=== PATIENT | female | born 2000 | race African-American/Black ===

== ENCOUNTER 2020-12-11 13:09 | Emergency (ER) | payer MEDICAID ==
[~2020-12-11] VITALS: Ht 162.6 cm; Wt 56.8 kg
[~2020-12-11 13:09] MED LIST: CARAFATE 1GM1 G PO; CLARITIN LIQUI-10 MG PO; DEPO-PROVER150 MG/M1 IM; DOXYCYCLINE 50M50 MG PO; LAMICTAL 25MG T25 MG PO; LO LOESTRIN FE1 TAB PO; MINIPRESS2 MG; PRIL40 PO; PRISTIQ 50 MG T50 MG PO; PROAIR HFA0.09 MG/AC IH; SEROQUEL400 MG PO; SEROQUEL50 MG PO; SINGULAIR 110 MG/TAB PO; ZANTAC 150150 MG
[2020-12-11 13:20] VITALS: TEMP 98
[2020-12-11 13:59] LABS: BASO % 0.2 % (0.0-2.0); EOS % 0.1 % (0-4.0); GRAN # 11.1 (1.4-6.5); GRAN % 88.9 % (42.2-75.2); HEMATOCRIT 37.3 % (37.0-47.0); HEMOGLOBIN 12.3 g/dl (12.5-16.0); LYMPH # 1.2 (1.2-3.4); LYMPH % 9.4 % (20.0-51.0); MEAN CELL VOLUME 79 fl (80.0-100.0); MEAN CORPUSCULAR HEMOGLOBIN 26 pg (27.0-31.0); MEAN CORPUSCULAR HGB CONC 33 g/dl (33.0-37.0); MEAN PLATELET VOLUME 9.8 fl (7.4-10.4); MONO # 0.1 (0.1-0.6); MONO % 1.1 % (1.7-9.3); PLATELET COUNT 404 K/mm3 (130-400); RED BLOOD COUNT 4.75 M/mm3 (4.10-5.30); REDCELL DISTRIBUTION WIDTH-CV 14.4 % (11.5-14.5)
[2020-12-11 14:11] LABS: ALANINE AMINOTRANSFERASE 12 U/L (4-34); ALBUMIN 5.2 gm/dL (3.5-5.0); ALKALINE PHOSPHATASE 101 U/L (50-136); ANION GAP 13 mmol/L (7-16); AST,SGOT 21 U/L (15-37); BILIRUBIN,TOTAL 0.4 mg/dL (0.0-1.0); BLOOD UREA NITROGEN 14 mg/dL (7-17); CALCIUM 10.1 mg/dL (8.4-10.2); CARBON DIOXIDE 20 mmol/L (22-30); CHLORIDE 107 mmol/L (98-107); CREATININE, serum 0.61 (0.52-1.25); GLUCOSE 133 mg/dL (74-106); LIPASE 69 U/L (23-300); POTASSIUM 3.8 mmol/L (3.4-5.0); SODIUM 139 mmol/L (137-145); TOTAL PROTEIN 9.1 gm/dL (6.4-8.2)
[2020-12-11 14:18] LABS: C-REACTIVE PROTEIN < 0.5 mg/dL (0.0-0.9)
[2020-12-11 15:21] LABS: COLLECTION METHOD CLEAN CATCH
[2020-12-11 15:30] LABS: MUCOUS Present /lpf; PH 8 (5-8); SQUAMOUS EPITHELIAL 0-2 /hpf; URINE APPEARANCE Clear; URINE BACTERIA None Seen /hpf; URINE BILIRUBIN Negative (NEGATIVE); URINE BLOOD 1+ (NEGATIVE); URINE COLOR Yellow; URINE GLUCOSE Negative (NEGATIVE); URINE KETONE 2+ (NEGATIVE); URINE LEUKOCYTE ESTERASE Negative (NEGATIVE); URINE NITRATE Negative (NEGATIVE); URINE PROTEIN(semi-quant) 1+ (NEGATIVE); URINE RBC 0-2 /hpf; URINE UROBILINOGEN Negative (NEGATIVE)
[2020-12-11 17:01] LABS: TRICYCLIC ANTIDEPRESS URINE NEGATIVE
[2020-12-11] MEDS ORDERED: ZOFRAN ODT4 MG PO (17:42)
[2020-12-11 18:00] VITALS: BP 119/77; PULSE 94
[2020-12-12] MEDS ORDERED: PHENERGAN 25 TA25 MG PO (22:49)
== END 2020-12-11 18:00 | disposition home or self-care (01) ==
LOC: COL.ER 13:09
PROVIDERS: Nurse Practitioner
DX: R10.9 Unspecified abdominal pain (principal); R11.2 Nausea with vomiting, unspecified; R19.7 Diarrhea, unspecified
CPT/HCPCS: J1200; J2405; J3010; J7030; Q9967

== ENCOUNTER 2020-12-12 18:53 | Emergency (ER) | payer MEDICAID ==
[~2020-12-12] VITALS: Ht 162.6 cm; Wt 56.8 kg
[~2020-12-12 18:53] MED LIST changes: +ZOFRAN ODT4 MG PO
[2020-12-12 19:48] LABS: BASO % 0.4 % (0.0-2.0); EOS % 0.1 % (0-4.0); GRAN % 75.7 % (42.2-75.2); HEMATOCRIT 38.3 % (37.0-47.0); HEMOGLOBIN 12.8 g/dl (12.5-16.0); LYMPH # 1.9 (1.2-3.4); LYMPH % 17.9 % (20.0-51.0); MEAN CELL VOLUME 78 fl (80.0-100.0); MEAN CORPUSCULAR HEMOGLOBIN 26 pg (27.0-31.0); MEAN CORPUSCULAR HGB CONC 33 g/dl (33.0-37.0); MEAN PLATELET VOLUME 9.8 fl (7.4-10.4); MONO # 0.6 (0.1-0.6); MONO % 5.2 % (1.7-9.3); RED BLOOD COUNT 4.92 M/mm3 (4.10-5.30); REDCELL DISTRIBUTION WIDTH-CV 14.6 % (11.5-14.5)
[2020-12-12 20:06] LABS: ALANINE AMINOTRANSFERASE 15 U/L (4-34); ALBUMIN 5.4 gm/dL (3.5-5.0); ALKALINE PHOSPHATASE 105 U/L (50-136); ANION GAP 15 mmol/L (7-16); AST,SGOT 27 U/L (15-37); BILIRUBIN,TOTAL 0.6 mg/dL (0.0-1.0); BLOOD UREA NITROGEN 11 mg/dL (7-17); CALCIUM 10.4 mg/dL (8.4-10.2); CARBON DIOXIDE 23 mmol/L (22-30); CHLORIDE 100 mmol/L (98-107); CREATININE, serum 0.77 (0.52-1.25); GLUCOSE 109 mg/dL (74-106); LIPASE 79 U/L (23-300); POTASSIUM 3.3 mmol/L (3.4-5.0); SODIUM 138 mmol/L (137-145); TOTAL PROTEIN 9.5 gm/dL (6.4-8.2)
[2020-12-12 20:07] LABS: C-REACTIVE PROTEIN < 0.5 mg/dL (0.0-0.9)
[2020-12-12 20:19] LABS: PLATELET COUNT 506 K/mm3 (130-400)
[2020-12-12 21:10] LABS: COLLECTION METHOD CLEAN CATCH
[2020-12-12 21:25] LABS: MUCOUS Present /lpf; PH 7 (5-8); SQUAMOUS EPITHELIAL 0-2 /hpf; URINE APPEARANCE Clear; URINE BACTERIA None Seen /hpf; URINE BILIRUBIN Negative (NEGATIVE); URINE BLOOD Negative (NEGATIVE); URINE COLOR Yellow; URINE GLUCOSE Negative (NEGATIVE); URINE KETONE 2+ (NEGATIVE); URINE LEUKOCYTE ESTERASE Negative (NEGATIVE); URINE NITRATE Negative (NEGATIVE); URINE PROTEIN(semi-quant) 2+ (NEGATIVE); URINE RBC 0-2 /hpf
[2020-12-12] MEDS ORDERED: PHENERGAN 25 TA25 MG PO (22:49)
[2020-12-12 23:15] VITALS: BP 128/71; PULSE 68; TEMP 98.5
[2020-12-13] MEDS ORDERED: K-TAB20 PO (13:35)
[2020-12-13] MEDS ORDERED: HALDOL 1MG T1 MG/TAB PO (13:35)
[2020-12-13] MEDS ORDERED: ATIVAN 1MG T1 MG/TAB PO (13:35)
== END 2020-12-12 23:16 | disposition home or self-care (01) ==
LOC: COL.ER 18:53
PROVIDERS: Nurse Practitioner Primary Care
DX: K52.9 Noninfective gastroenteritis and colitis, unspecified (principal); F17.290 Nicotine dependence, other tobacco product, uncomplicated
CPT/HCPCS: J1200; J2405; J2550; J7030

== ENCOUNTER 2020-12-13 11:59 | Emergency (ER) | payer MEDICAID ==
[~2020-12-13] VITALS: Ht 162.6 cm; Wt 57.7 kg
[~2020-12-13 11:59] MED LIST changes: +PHENERGAN 25 TA25 MG PO
[2020-12-13 12:00] VITALS: TEMP 97.2
[2020-12-13 12:43] LABS: BASO % 0.3 % (0.0-2.0); EOS % 0.2 % (0-4.0); GRAN # 7.4 (1.4-6.5); GRAN % 74.5 % (42.2-75.2); HEMATOCRIT 31.7 % (37.0-47.0); HEMOGLOBIN 10.5 g/dl (12.5-16.0); LYMPH # 1.8 (1.2-3.4); LYMPH % 18.1 % (20.0-51.0); MEAN CELL VOLUME 79 fl (80.0-100.0); MEAN CORPUSCULAR HEMOGLOBIN 26 pg (27.0-31.0); MEAN CORPUSCULAR HGB CONC 33 g/dl (33.0-37.0); MEAN PLATELET VOLUME 9.7 fl (7.4-10.4); MONO # 0.6 (0.1-0.6); MONO % 6.5 % (1.7-9.3); PLATELET COUNT 311 K/mm3 (130-400); RED BLOOD COUNT 4.01 M/mm3 (4.10-5.30); REDCELL DISTRIBUTION WIDTH-CV 14.3 % (11.5-14.5)
[2020-12-13 12:52] LABS: ALBUMIN 4.1 gm/dL (3.5-5.0); BILIRUBIN,TOTAL 0.4 mg/dL (0.0-1.0); CALCIUM 8.1 mg/dL (8.4-10.2); CREATININE, serum 0.63 (0.52-1.25)
[2020-12-13 12:55] LABS: POTASSIUM 2.8 mmol/L (3.4-5.0)
[2020-12-13] MEDS ORDERED: HALDOL 1MG T1 MG/TAB PO (13:35)
[2020-12-13] MEDS ORDERED: ATIVAN 1MG T1 MG/TAB PO (13:35)
[2020-12-13] MEDS ORDERED: K-TAB20 PO (13:35)
[2020-12-13 14:08] VITALS: BP 110/64; PULSE 77
== END 2020-12-13 14:11 | disposition home or self-care (01) ==
LOC: COL.ER 11:59
PROVIDERS: Emergency Medicine
DX: E87.6 Hypokalemia (principal); R11.2 Nausea with vomiting, unspecified; Z32.02 Encounter for pregnancy test, result negative; Z88.0 Allergy status to penicillin; Z88.1 Allergy status to other antibiotic agents
CPT/HCPCS: J1630; J2060; J3480; J7030

== ENCOUNTER 2020-12-14 09:21 | Emergency (ER) | payer MEDICAID ==
[~2020-12-14] VITALS: Ht 162.6 cm; Wt 57.7 kg
[~2020-12-14 09:21] MED LIST changes: +ATIVAN 1MG T1 MG/TAB PO; +HALDOL 1MG T1 MG/TAB PO; +K-TAB20 PO
[2020-12-14 09:28] VITALS: TEMP 98
[2020-12-14 10:31] LABS: BASO % 0.4 % (0.0-2.0); EOS % 0.4 % (0-4.0); GRAN # 8.5 (1.4-6.5); GRAN % 77.1 % (42.2-75.2); HEMOGLOBIN 10.9 g/dl (12.5-16.0); LYMPH # 1.9 (1.2-3.4); LYMPH % 16.7 % (20.0-51.0); MEAN CELL VOLUME 79 fl (80.0-100.0); MEAN CORPUSCULAR HEMOGLOBIN 26 pg (27.0-31.0); MEAN CORPUSCULAR HGB CONC 33 g/dl (33.0-37.0); MONO # 0.6 (0.1-0.6); PLATELET COUNT 353 K/mm3 (130-400); RED BLOOD COUNT 4.23 M/mm3 (4.10-5.30); REDCELL DISTRIBUTION WIDTH-CV 14.3 % (11.5-14.5)
[2020-12-14 10:33] LABS: HEMATOCRIT 33.4 % (37.0-47.0)
[2020-12-14 10:42] LABS: ALBUMIN 4.3 gm/dL (3.5-5.0); BILIRUBIN,TOTAL 0.4 mg/dL (0.0-1.0); CREATININE, serum 0.65 (0.52-1.25); TOTAL PROTEIN 7.5 gm/dL (6.4-8.2)
[2020-12-14 12:12] VITALS: BP 117/81; PULSE 68
== END 2020-12-14 12:19 | disposition home or self-care (01) ==
LOC: COL.ER 09:21
PROVIDERS: Physician Assistant
DX: K52.9 Noninfective gastroenteritis and colitis, unspecified (principal); E87.6 Hypokalemia; D72.829 Elevated white blood cell count, unspecified
CPT/HCPCS: J2550; J7030

== ENCOUNTER 2020-12-16 19:00 | Emergency (ER) | payer MEDICAID ==
[~2020-12-16] VITALS: Ht 162.6 cm; Wt 57.7 kg
[2020-12-16 19:48] LABS: COLLECTION METHOD CLEAN CATCH
[2020-12-16 19:53] LABS: HEMOGLOBIN 11.9 g/dl (12.5-16.0); MEAN CELL VOLUME 76 fl (80.0-100.0); MEAN CORPUSCULAR HEMOGLOBIN 26 pg (27.0-31.0); MEAN CORPUSCULAR HGB CONC 34 g/dl (33.0-37.0); MEAN PLATELET VOLUME 9.6 fl (7.4-10.4); PLATELET COUNT 399 K/mm3 (130-400); RED BLOOD COUNT 4.55 M/mm3 (4.10-5.30)
[2020-12-16 19:54] LABS: HEMATOCRIT 34.6 % (37.0-47.0)
[2020-12-16 20:01] LABS: MUCOUS Present /lpf; PH 7 (5-8); SQUAMOUS EPITHELIAL 0-2 /hpf; URINE APPEARANCE Cloudy; URINE BACTERIA Rare /hpf; URINE BILIRUBIN Negative (NEGATIVE); URINE BLOOD 1+ (NEGATIVE); URINE COLOR Yellow; URINE GLUCOSE Negative (NEGATIVE); URINE KETONE 2+ (NEGATIVE); URINE LEUKOCYTE ESTERASE Negative (NEGATIVE); URINE NITRATE Negative (NEGATIVE); URINE PROTEIN(semi-quant) 1+ (NEGATIVE); URINE RBC 0-2 /hpf
[2020-12-16 20:06] LABS: ALBUMIN 4.7 gm/dL (3.5-5.0); BILIRUBIN,TOTAL 0.5 mg/dL (0.0-1.0); CALCIUM 9.5 mg/dL (8.4-10.2); CREATININE, serum 0.62 (0.52-1.25)
[2020-12-16 20:13] LABS: POTASSIUM 2.9 mmol/L (3.4-5.0)
[2020-12-16] MEDS ORDERED: PHENERGAN12.5 MG/SU RC (21:15)
[2020-12-16 21:22] LABS: TRICYCLIC ANTIDEPRESS URINE NEGATIVE
[2020-12-16] MEDS ORDERED: KLOR-CON20 MEQ PO (21:31)
[2020-12-16 21:45] VITALS: BP 134/92; PULSE 95; TEMP 98.5
== END 2020-12-16 21:45 | disposition home or self-care (01) ==
LOC: COL.ER 19:00
PROVIDERS: Physician Assistant
DX: K52.9 Noninfective gastroenteritis and colitis, unspecified (principal); E87.6 Hypokalemia
CPT/HCPCS: J2550; J7030

== ENCOUNTER 2020-12-17 06:19 | Emergency (ER) | payer MEDICAID ==
[~2020-12-17] VITALS: Ht 162.6 cm; Wt 57.7 kg
[~2020-12-17 06:19] MED LIST changes: +KLOR-CON20 MEQ PO; +PHENERGAN12.5 MG/SU RC
[2020-12-17 06:30] VITALS: TEMP 98.7
[2020-12-17 07:17] LABS: BASO % 0.6 % (0.0-2.0); EOS # 0.1 (0.0-0.7); EOS % 0.8 % (0-4.0); GRAN # 4.6 (1.4-6.5); GRAN % 62.8 % (42.2-75.2); HEMOGLOBIN 11.9 g/dl (12.5-16.0); MEAN CELL VOLUME 78 fl (80.0-100.0); MEAN CORPUSCULAR HEMOGLOBIN 26 pg (27.0-31.0); MEAN CORPUSCULAR HGB CONC 34 g/dl (33.0-37.0); MEAN PLATELET VOLUME 9.4 fl (7.4-10.4); MONO # 0.5 (0.1-0.6); MONO % 7.4 % (1.7-9.3); PLATELET COUNT 378 K/mm3 (130-400); RED BLOOD COUNT 4.56 M/mm3 (4.10-5.30)
[2020-12-17 07:18] LABS: HEMATOCRIT 35.5 % (37.0-47.0)
[2020-12-17 07:26] LABS: ALBUMIN 4.6 gm/dL (3.5-5.0); BILIRUBIN,TOTAL 0.6 mg/dL (0.0-1.0); CALCIUM 9.4 mg/dL (8.4-10.2); CREATININE, serum 0.65 (0.52-1.25); POTASSIUM 3.2 mmol/L (3.4-5.0); TOTAL PROTEIN 7.8 gm/dL (6.4-8.2)
[2020-12-17 07:55] VITALS: BP 133/69; PULSE 87
== END 2020-12-17 07:55 | disposition home or self-care (01) ==
LOC: COL.ER 06:19
PROVIDERS: Personal Emergency Response Attendant
DX: K52.9 Noninfective gastroenteritis and colitis, unspecified (principal); E87.6 Hypokalemia
CPT/HCPCS: J1630; J7030

== ENCOUNTER 2020-12-21 10:52 | Emergency (ER) | payer MEDICAID ==
[~2020-12-21] VITALS: Ht 162.6 cm; Wt 57.7 kg
[2020-12-21 10:57] VITALS: TEMP 98.7
[2020-12-21 12:56] VITALS: BP 123/69; PULSE 86
[2020-12-21] MEDS ORDERED: ZOFRAN ODT4 MG PO (13:01)
== END 2020-12-21 13:07 | disposition home or self-care (01) ==
LOC: COL.ER 10:52
DX: R11.2 Nausea with vomiting, unspecified (principal); F17.290 Nicotine dependence, other tobacco product, uncomplicated
CPT/HCPCS: J1630; J7120

== ENCOUNTER 2020-12-26 11:00 | Emergency (ER) | payer MEDICAID ==
[~2020-12-26] VITALS: Ht 162.6 cm; Wt 57.7 kg
[2020-12-26 11:11] VITALS: TEMP 97.5
[2020-12-26 12:38] VITALS: BP 139/94; PULSE 98
== END 2020-12-26 12:38 | disposition home or self-care (01) ==
LOC: COL.ER 11:00
DX: F12.90 Cannabis use, unspecified, uncomplicated (principal); R11.2 Nausea with vomiting, unspecified
CPT/HCPCS: J1630

== ENCOUNTER 2020-12-28 11:10 | Emergency (ER) | payer MEDICAID ==
[~2020-12-28] VITALS: Ht 162.6 cm; Wt 57.7 kg
[2020-12-28 11:26] LABS: BASO % 0.3 % (0.0-2.0); EOS # 0.1 (0.0-0.7); EOS % 1.1 % (0-4.0); GRAN # 7.7 (1.4-6.5); GRAN % 71.3 % (42.2-75.2); HEMOGLOBIN 11.9 g/dl (12.5-16.0); LYMPH # 2.2 (1.2-3.4); LYMPH % 20.5 % (20.0-51.0); MEAN CELL VOLUME 78 fl (80.0-100.0); MEAN CORPUSCULAR HEMOGLOBIN 26 pg (27.0-31.0); MEAN CORPUSCULAR HGB CONC 33 g/dl (33.0-37.0); MEAN PLATELET VOLUME 9.5 fl (7.4-10.4); MONO # 0.7 (0.1-0.6); MONO % 6.4 % (1.7-9.3); PLATELET COUNT 415 K/mm3 (130-400); RED BLOOD COUNT 4.65 M/mm3 (4.10-5.30); REDCELL DISTRIBUTION WIDTH-CV 14.8 % (11.5-14.5)
[2020-12-28 11:36] LABS: HEMATOCRIT 36.4 % (37.0-47.0)
[2020-12-28 11:48] LABS: ALANINE AMINOTRANSFERASE 11 U/L (4-34); ALBUMIN 4.7 gm/dL (3.5-5.0); ALKALINE PHOSPHATASE 80 U/L (50-136); ANION GAP 8 mmol/L (7-16); AST,SGOT 19 U/L (15-37); BILIRUBIN,TOTAL 0.3 mg/dL (0.0-1.0); BLOOD UREA NITROGEN 10 mg/dL (7-17); CALCIUM 9.8 mg/dL (8.4-10.2); CARBON DIOXIDE 20 mmol/L (22-30); CHLORIDE 107 mmol/L (98-107); CREATININE, serum 0.59 (0.52-1.25); GLUCOSE 112 mg/dL (74-106); LIPASE 101 U/L (23-300); POTASSIUM 3.9 mmol/L (3.4-5.0); SODIUM 136 mmol/L (137-145); TOTAL PROTEIN 8.1 gm/dL (6.4-8.2)
[2020-12-28 11:50] LABS: C-REACTIVE PROTEIN < 0.5 mg/dL (0.0-0.9)
[2020-12-28 12:27] VITALS: TEMP 97.6
[2020-12-28] MEDS ORDERED: ZOFRAN ODT4 MG PO (14:47)
[2020-12-28 15:15] VITALS: BP 138/88; PULSE 69
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
== END 2020-12-28 15:20 | disposition home or self-care (01) ==
LOC: COL.ER 11:10
PROVIDERS: Nurse Practitioner Primary Care
DX: R11.2 Nausea with vomiting, unspecified (principal); F12.90 Cannabis use, unspecified, uncomplicated; J45.909 Unspecified asthma, uncomplicated
CPT/HCPCS: J1630; J1885; J2405; J2550; J7030

== ENCOUNTER 2021-03-17 10:25 | Emergency (ER) | payer MEDICAID ==
[~2021-03-17] VITALS: Ht 162.6 cm; Wt 53.2 kg
[2021-03-17 10:34] VITALS: TEMP 96.8
[2021-03-17] MEDS ORDERED: ZOFRAN ODT4 MG PO (11:24)
[2021-03-17 11:32] VITALS: BP 133/80; PULSE 94
== END 2021-03-17 11:32 | disposition home or self-care (01) ==
LOC: COL.ER 10:25
DX: R11.2 Nausea with vomiting, unspecified (principal)
CPT/HCPCS: J1630; J7030

== ENCOUNTER 2021-03-18 20:33 | Emergency (ER) | payer MEDICAID ==
[~2021-03-18] VITALS: Ht 162.6 cm; Wt 53.2 kg
[2021-03-18 20:43] VITALS: TEMP 98.4
[2021-03-18 21:12] LABS: BASO % 0.3 % (0.0-2.0); GRAN # 8.8 (1.4-6.5); GRAN % 78.1 % (42.2-75.2); HEMOGLOBIN 11.8 g/dl (12.5-16.0); LYMPH # 1.8 (1.2-3.4); LYMPH % 15.6 % (20.0-51.0); MEAN CELL VOLUME 78 fl (80.0-100.0); MEAN CORPUSCULAR HEMOGLOBIN 26 pg (27.0-31.0); MEAN CORPUSCULAR HGB CONC 34 g/dl (33.0-37.0); MEAN PLATELET VOLUME 9.7 fl (7.4-10.4); MONO # 0.6 (0.1-0.6); MONO % 5.6 % (1.7-9.3); PLATELET COUNT 402 K/mm3 (130-400); RED BLOOD COUNT 4.51 M/mm3 (4.10-5.30); REDCELL DISTRIBUTION WIDTH-CV 14.7 % (11.5-14.5)
[2021-03-18 21:13] LABS: HEMATOCRIT 35.1 % (37.0-47.0)
[2021-03-18 21:32] LABS: ALBUMIN 4.8 gm/dL (3.5-5.0); ALKALINE PHOSPHATASE 82 U/L (0-750); ANION GAP 16 mmol/L; AST,SGOT 13 U/L (5-34); BILIRUBIN,TOTAL 0.5 mg/dL (0.2-1.2); BLOOD UREA NITROGEN 10 mg/dL (7-19); CALCIUM 9.9 mg/dL (8.4-10.2); CARBON DIOXIDE 21 mEq/L (22-29); CHLORIDE 103 mmol/L (98-107); CREATININE, serum 0.81 mg/dL (0.57-1.11); GLUCOSE 112 mg/dL (70-99); LIPASE 13 U/L (8-78); SODIUM 140 mmol/L (136-145); TOTAL PROTEIN 8.2 gm/dL (6.2-8.1)
[2021-03-18 21:33] LABS: ALANINE AMINOTRANSFERASE < 6 U/L (0-55)
[2021-03-18 22:03] VITALS: BP 104/58; PULSE 100
== END 2021-03-18 22:04 | disposition home or self-care (01) ==
LOC: COL.ER 20:33
PROVIDERS: Emergency Medicine
DX: R11.2 Nausea with vomiting, unspecified (principal); R10.13 Epigastric pain; E87.6 Hypokalemia; Z32.02 Encounter for pregnancy test, result negative
CPT/HCPCS: J0780; J2405; J7030

== ENCOUNTER 2021-03-19 08:15 | Emergency (ER) | payer MEDICAID ==
[2021-03-19 08:18] VITALS: TEMP 98.1
[2021-03-19 08:32] LABS: BASO # 0.1 (0.0-0.2); BASO % 0.6 % (0.0-2.0); EOS % 0.1 % (0-4.0); GRAN # 5.8 (1.4-6.5); GRAN % 67.6 % (42.2-75.2); HEMATOCRIT 33.2 % (37.0-47.0); HEMOGLOBIN 11.2 g/dl (12.5-16.0); LYMPH # 2.1 (1.2-3.4); LYMPH % 24.1 % (20.0-51.0); MEAN CELL VOLUME 78 fl (80.0-100.0); MEAN CORPUSCULAR HEMOGLOBIN 26 pg (27.0-31.0); MEAN CORPUSCULAR HGB CONC 34 g/dl (33.0-37.0); MEAN PLATELET VOLUME 9.8 fl (7.4-10.4); MONO # 0.6 (0.1-0.6); PLATELET COUNT 344 K/mm3 (130-400); RED BLOOD COUNT 4.24 M/mm3 (4.10-5.30); REDCELL DISTRIBUTION WIDTH-CV 14.7 % (11.5-14.5)
[2021-03-19 08:33] LABS: COLLECTION METHOD CLEAN CATCH
[2021-03-19 08:50] LABS: MUCOUS Present /lpf; PH 6 (5-8); SQUAMOUS EPITHELIAL 20-50 /hpf; URINE APPEARANCE Cloudy; URINE BACTERIA Rare /hpf; URINE BILIRUBIN Negative (NEGATIVE); URINE BLOOD Negative (NEGATIVE); URINE COLOR Yellow; URINE GLUCOSE Negative (NEGATIVE); URINE KETONE 2+ (NEGATIVE); URINE LEUKOCYTE ESTERASE Negative (NEGATIVE); URINE NITRATE Negative (NEGATIVE); URINE PROTEIN(semi-quant) 1+ (NEGATIVE); URINE RBC 0-2 /hpf
[2021-03-19 08:51] LABS: TRICYCLIC ANTIDEPRESS URINE NEGATIVE
[2021-03-19 08:52] LABS: ALBUMIN 4.5 gm/dL (3.5-5.0); ALKALINE PHOSPHATASE 76 U/L (0-750); ANION GAP 11 mmol/L; AST,SGOT 10 U/L (5-34); BILIRUBIN,TOTAL 0.5 mg/dL (0.2-1.2); BLOOD UREA NITROGEN 9 mg/dL (7-19); CALCIUM 9.6 mg/dL (8.4-10.2); CARBON DIOXIDE 22 mEq/L (22-29); CHLORIDE 104 mmol/L (98-107); CREATININE, serum 0.74 mg/dL (0.57-1.11); GLUCOSE 99 mg/dL (70-99); LIPASE 12 U/L (8-78); SODIUM 137 mmol/L (136-145); TOTAL PROTEIN 7.7 gm/dL (6.2-8.1)
[2021-03-19 08:58] LABS: ALANINE AMINOTRANSFERASE < 6 U/L (0-55)
[2021-03-19 09:49] VITALS: BP 118/79; PULSE 92
[2021-03-20] MEDS ORDERED: PHENERGAN 25 TA25 MG PO (10:55)
== END 2021-03-19 09:51 | disposition home or self-care (01) ==
LOC: COL.ER 08:15
PROVIDERS: Family Medicine
DX: E87.6 Hypokalemia (principal)
CPT/HCPCS: J7120

== ENCOUNTER 2021-03-20 09:18 | Emergency (ER) | payer MEDICAID ==
[~2021-03-20] VITALS: Ht 162.6 cm; Wt 53.2 kg
[2021-03-20 09:29] VITALS: BP 127/71; TEMP 97.1
[2021-03-20] MEDS ORDERED: PHENERGAN 25 TA25 MG PO (10:55)
[2021-03-20 11:06] VITALS: PULSE 76
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
--- NOTE | 2021-03-22 13:55 | NUR ---
highway maintenance crew worker left message for patient to contact [facility] DCF worker and provide release of information so that Worker can collaborate and discuss care. Worker spoke with [facility] and advised of needs for mental health services and child support case officer , as worker and patient discussed during her emergency room stay. [facility] cannot discuss case with this worker without a release.
== END 2021-03-20 11:07 | disposition home or self-care (01) ==
LOC: COL.ER 09:18
DX: G89.29 Other chronic pain (principal); E86.0 Dehydration; R10.13 Epigastric pain; R11.2 Nausea with vomiting, unspecified
CPT/HCPCS: J2550

== ENCOUNTER 2021-03-21 05:14 | Emergency (ER) | payer MEDICAID ==
[~2021-03-21] VITALS: Ht 162.6 cm; Wt 53.2 kg
[2021-03-21 05:19] VITALS: BP 132/81; TEMP 98
[2021-03-21 05:42] LABS: BASO # 0.1 (0.0-0.2); BASO % 0.6 % (0.0-2.0); EOS % 0.3 % (0-4.0); GRAN # 5.4 (1.4-6.5); GRAN % 55.6 % (42.2-75.2); HEMATOCRIT 38.7 % (37.0-47.0); LYMPH # 3.4 (1.2-3.4); LYMPH % 34.9 % (20.0-51.0); MEAN CELL VOLUME 79 fl (80.0-100.0); MEAN CORPUSCULAR HEMOGLOBIN 27 pg (27.0-31.0); MEAN CORPUSCULAR HGB CONC 34 g/dl (33.0-37.0); MEAN PLATELET VOLUME 9.8 fl (7.4-10.4); MONO # 0.8 (0.1-0.6); MONO % 8.2 % (1.7-9.3); PLATELET COUNT 394 K/mm3 (130-400); RED BLOOD COUNT 4.91 M/mm3 (4.10-5.30); REDCELL DISTRIBUTION WIDTH-CV 14.3 % (11.5-14.5)
[2021-03-21 06:00] LABS: ALBUMIN 4.9 gm/dL (3.5-5.0); BILIRUBIN,TOTAL 0.8 mg/dL (0.2-1.2); CREATININE, serum 0.86 mg/dL (0.57-1.11); TOTAL PROTEIN 8.4 gm/dL (6.2-8.1)
[2021-03-21 08:16] VITALS: PULSE 85
== END 2021-03-21 08:16 | disposition home or self-care (01) ==
LOC: COL.ER 05:14
PROVIDERS: Emergency Medicine
DX: R10.13 Epigastric pain (principal); E86.0 Dehydration; R11.2 Nausea with vomiting, unspecified
CPT/HCPCS: J1630; J2405; J2550; J3480; J7030; Q9967

== ENCOUNTER 2021-03-23 10:59 | Outpatient (CLI) | payer MEDICAID ==
[~2021-03-23] VITALS: Ht 162.6 cm; Wt 50.0 kg
[2021-03-23 12:38] VITALS: BP 138/82; PULSE 85; TEMP 98.7
== END 2021-03-23 15:01 ==
LOC: EUO 10:59
DX: E86.0 Dehydration (principal)
CPT/HCPCS: J7120

== ENCOUNTER 2021-03-24 15:56 | Outpatient (CLI) | payer MEDICAID ==
[~2021-03-24] VITALS: Ht 162.6 cm; Wt 48.6 kg
[2021-03-24 16:16] VITALS: BP 129/72; PULSE 104; TEMP 99.2
--- NOTE | 2021-03-24 18:05 | NUR ---
PT reports nausea somewhat improved after zofran. I have dc'd her IV and site is dressed. I have discussed with pt that she can go to urgent care or ER between and saturday if she has intractable abd pain or vomiting. Pt does express reluctance to go to ER, however I advised her to seek medical care there if needed. Pt does have a f/u appt with her pcp on saturday. Pt is ambulatory to exit with steady gait.
== END 2021-03-24 19:50 | disposition home or self-care (01) ==
LOC: EUO 15:56
DX: E86.0 Dehydration (principal)
CPT/HCPCS: J2405; J7120

== ENCOUNTER 2021-03-25 14:00 | Emergency (ER) | payer MEDICAID ==
[~2021-03-25] VITALS: Ht 162.6 cm; Wt 48.6 kg
[2021-03-25 14:17] VITALS: BP 143/84; TEMP 99.2
[2021-03-25 15:05] LABS: COLLECTION METHOD CLEAN CATCH
[2021-03-25 15:09] LABS: BASO % 0.3 % (0.0-2.0); EOS % 0.4 % (0-4.0); HEMATOCRIT 34.8 % (37.0-47.0); HEMOGLOBIN 11.8 g/dl (12.5-16.0); LYMPH # 2.9 (1.2-3.4); LYMPH % 30.1 % (20.0-51.0); MEAN CELL VOLUME 79 fl (80.0-100.0); MEAN CORPUSCULAR HEMOGLOBIN 27 pg (27.0-31.0); MEAN CORPUSCULAR HGB CONC 34 g/dl (33.0-37.0); MEAN PLATELET VOLUME 9.9 fl (7.4-10.4); MONO # 0.8 (0.1-0.6); MONO % 7.9 % (1.7-9.3); PLATELET COUNT 357 K/mm3 (130-400); RED BLOOD COUNT 4.43 M/mm3 (4.10-5.30); REDCELL DISTRIBUTION WIDTH-CV 14.5 % (11.5-14.5)
[2021-03-25 15:20] LABS: PH 8 (5-8); URINE APPEARANCE Hazy; URINE BILIRUBIN Negative (NEGATIVE); URINE BLOOD 1+ (NEGATIVE); URINE COLOR Yellow; URINE GLUCOSE Negative (NEGATIVE); URINE KETONE 2+ (NEGATIVE); URINE NITRATE Negative (NEGATIVE); URINE PROTEIN(semi-quant) 2+ (NEGATIVE); URINE UROBILINOGEN >=4.0 mg/dL (NEGATIVE)
[2021-03-25 15:21] LABS: MUCOUS Present /lpf; SQUAMOUS EPITHELIAL 0-2 /hpf; URINE BACTERIA None Seen /hpf; URINE LEUKOCYTE ESTERASE Negative (NEGATIVE); URINE RBC 0-2 /hpf
[2021-03-25 15:29] LABS: ALBUMIN 4.5 gm/dL (3.5-5.0); ALKALINE PHOSPHATASE 66 U/L (0-750); ANION GAP 14 mmol/L (7-16); AST,SGOT 11 U/L (5-34); BILIRUBIN,TOTAL 0.4 mg/dL (0.2-1.2); BLOOD UREA NITROGEN 6 mg/dL (7-19); CALCIUM 9.6 mg/dL (8.4-10.2); CARBON DIOXIDE 23 mmol/L (22-29); CHLORIDE 102 mmol/L (98-107); CREATININE, serum 0.76 mg/dL (0.57-1.11); GLUCOSE 91 mg/dL (70-99); SODIUM 139 mmol/L (136-145); TOTAL PROTEIN 7.5 gm/dL (6.2-8.1)
[2021-03-25 15:38] LABS: ALANINE AMINOTRANSFERASE < 6 U/L (0-55)
[2021-03-25 16:00] VITALS: PULSE 90
== END 2021-03-25 16:00 | disposition home or self-care (01) ==
LOC: COL.ER 14:00
PROVIDERS: Physician Assistant
DX: G89.29 Other chronic pain (principal); R10.13 Epigastric pain; R11.2 Nausea with vomiting, unspecified; D64.9 Anemia, unspecified; E87.6 Hypokalemia; Z87.891 Personal history of nicotine dependence; Z87.19 Personal history of other diseases of the digestive system
CPT/HCPCS: J1790

== ENCOUNTER 2021-03-26 12:47 | Emergency (ER) | payer MEDICAID ==
[~2021-03-26] VITALS: Ht 162.6 cm; Wt 48.6 kg
[2021-03-26 13:05] VITALS: BP 146/112; TEMP 99.1
[2021-03-26 15:25] VITALS: PULSE 99
== END 2021-03-26 15:25 | disposition home or self-care (01) ==
LOC: COL.ER 12:47
DX: R11.2 Nausea with vomiting, unspecified (principal); F17.200 Nicotine dependence, unspecified, uncomplicated
CPT/HCPCS: J0780; J2550

== ENCOUNTER 2021-03-29 12:17 | Emergency (ER) | payer MEDICAID ==
[~2021-03-29] VITALS: Ht 162.6 cm; Wt 48.6 kg
[2021-03-29 12:32] VITALS: TEMP 98.6
[2021-03-29 13:58] LABS: BASO % 0.3 % (0.0-2.0); EOS % 0.3 % (0-4.0); GRAN # 7.3 K/mm3 (1.4-6.5); GRAN % 79.7 % (42.2-75.2); HEMOGLOBIN 11.5 g/dl (12.5-16.0); LYMPH # 1.4 K/mm3 (1.2-3.4); MEAN CELL VOLUME 79 fl (80.0-100.0); MEAN CORPUSCULAR HEMOGLOBIN 26 pg (27.0-31.0); MEAN CORPUSCULAR HGB CONC 33 g/dl (33.0-37.0); MEAN PLATELET VOLUME 9.7 fl (7.4-10.4); MONO # 0.4 K/mm3 (0.1-0.6); MONO % 4.4 % (1.7-9.3); PLATELET COUNT 346 K/mm3 (130-400); RED BLOOD COUNT 4.37 M/mm3 (4.10-5.30); REDCELL DISTRIBUTION WIDTH-CV 14.9 % (11.5-14.5)
[2021-03-29 14:00] LABS: HEMATOCRIT 34.6 % (37.0-47.0)
[2021-03-29 14:14] LABS: ALBUMIN 4.5 gm/dL (3.5-5.0); ALKALINE PHOSPHATASE 61 U/L (0-750); ANION GAP 8 mmol/L (7-16); AST,SGOT 11 U/L (5-34); BILIRUBIN,TOTAL 0.3 mg/dL (0.2-1.2); BLOOD UREA NITROGEN 8 mg/dL (7-19); CALCIUM 9.2 mg/dL (8.4-10.2); CARBON DIOXIDE 26 mmol/L (22-29); CHLORIDE 106 mmol/L (98-107); CREATININE, serum 0.68 mg/dL (0.57-1.11); GLUCOSE 106 mg/dL (70-99); POTASSIUM 3.1 mmol/L (3.5-4.5); SODIUM 140 mmol/L (136-145); TOTAL PROTEIN 7.4 gm/dL (6.2-8.1)
[2021-03-29 14:24] LABS: ALANINE AMINOTRANSFERASE < 6 U/L (0-55)
[2021-03-29 15:11] LABS: COLLECTION METHOD CLEAN CATCH
[2021-03-29 15:22] LABS: AMORPHOUS CRYSTAL Present /uL; MUCOUS Present /lpf; PH 9 (5-8); SQUAMOUS EPITHELIAL 0-2 /hpf; URINE APPEARANCE Cloudy; URINE BACTERIA Rare /hpf; URINE BILIRUBIN Negative (NEGATIVE); URINE BLOOD Negative (NEGATIVE); URINE COLOR Yellow; URINE GLUCOSE Negative (NEGATIVE); URINE KETONE Negative (NEGATIVE); URINE LEUKOCYTE ESTERASE Negative (NEGATIVE); URINE NITRATE Negative (NEGATIVE); URINE PROTEIN(semi-quant) Negative (NEGATIVE); URINE UROBILINOGEN Negative (NEGATIVE)
[2021-03-29 16:34] VITALS: BP 131/91; PULSE 88
== END 2021-03-29 16:37 | disposition home or self-care (01) ==
LOC: COL.ER 12:17
PROVIDERS: Nurse Practitioner Primary Care
DX: E87.5 Hyperkalemia (principal); R11.2 Nausea with vomiting, unspecified; K21.9 Gastro-esophageal reflux disease without esophagitis; Z79.899 Other long term (current) drug therapy
CPT/HCPCS: J2550; J7030

== ENCOUNTER 2021-04-25 11:52 | Emergency (ER) | payer MEDICAID ==
[~2021-04-25] VITALS: Ht 162.6 cm; Wt 53.2 kg
[2021-04-25 12:11] VITALS: BP 124/100; TEMP 97.3
[2021-04-25] MEDS ORDERED: REGLAN 5MG T5 MG/TAB PO (12:11)
[2021-04-25 12:49] LABS: BASO # 0.1 K/mm3 (0.0-0.2); BASO % 0.4 % (0.0-2.0); EOS % 0.3 % (0-4.0); GRAN # 13.2 K/mm3 (1.4-6.5); GRAN % 85.7 % (42.2-75.2); LYMPH # 1.6 K/mm3 (1.2-3.4); LYMPH % 10.1 % (20.0-51.0); MEAN CELL VOLUME 79 fl (80.0-100.0); MEAN CORPUSCULAR HEMOGLOBIN 26 pg (27.0-31.0); MEAN CORPUSCULAR HGB CONC 33 g/dl (33.0-37.0); MONO # 0.5 K/mm3 (0.1-0.6); PLATELET COUNT 430 K/mm3 (130-400); RED BLOOD COUNT 4.21 M/mm3 (4.10-5.30); REDCELL DISTRIBUTION WIDTH-CV 14.6 % (11.5-14.5)
[2021-04-25 12:50] LABS: HEMATOCRIT 33.4 % (37.0-47.0)
[2021-04-25 13:06] LABS: ALBUMIN 4.6 gm/dL (3.5-5.0); BILIRUBIN,TOTAL 0.3 mg/dL (0.2-1.2); C-REACTIVE PROTEIN 0.03 mg/dL (0.00-0.50); CALCIUM 9.9 mg/dL (8.4-10.2); CREATININE, serum 0.7 mg/dL (0.57-1.11); POTASSIUM 3.7 mmol/L (3.5-4.5); TOTAL PROTEIN 7.5 gm/dL (6.2-8.1)
[2021-04-25 15:05] VITALS: PULSE 91
== END 2021-04-25 15:05 | disposition home or self-care (01) ==
LOC: COL.ER 11:52
PROVIDERS: Nurse Practitioner
DX: R11.2 Nausea with vomiting, unspecified (principal); D72.829 Elevated white blood cell count, unspecified
CPT/HCPCS: J2405; J2550; J7030

== ENCOUNTER 2021-05-26 09:03 | Emergency (ER) | payer MEDICAID ==
[~2021-05-26] VITALS: Ht 162.6 cm; Wt 53.2 kg
[~2021-05-26 09:03] MED LIST changes: +REGLAN 5MG T5 MG/TAB PO
[2021-05-26 09:05] VITALS: TEMP 97.9
[2021-05-26 09:54] LABS: BASO % 0.2 % (0.0-2.0); EOS % 0.2 % (0-4.0); GRAN % 81.6 % (42.2-75.2); HEMOGLOBIN 11.9 g/dl (12.5-16.0); LYMPH # 1.8 K/mm3 (1.2-3.4); LYMPH % 14.7 % (20.0-51.0); MEAN CELL VOLUME 79 fl (80.0-100.0); MEAN CORPUSCULAR HEMOGLOBIN 26 pg (27.0-31.0); MEAN CORPUSCULAR HGB CONC 33 g/dl (33.0-37.0); MEAN PLATELET VOLUME 9.7 fl (7.4-10.4); MONO # 0.4 K/mm3 (0.1-0.6); MONO % 2.9 % (1.7-9.3); PLATELET COUNT 369 K/mm3 (130-400); RED BLOOD COUNT 4.58 M/mm3 (4.10-5.30); REDCELL DISTRIBUTION WIDTH-CV 14.8 % (11.5-14.5)
[2021-05-26 10:10] LABS: ALBUMIN 5.1 gm/dL (3.5-5.0); BILIRUBIN,TOTAL 0.7 mg/dL (0.2-1.2); CALCIUM 9.8 mg/dL (8.4-10.2); CREATININE, serum 0.82 mg/dL (0.57-1.11); POTASSIUM 3.1 mmol/L (3.5-4.5); TOTAL PROTEIN 8.4 gm/dL (6.2-8.1)
[2021-05-26 10:18] VITALS: BP 123/84; PULSE 96
[2021-05-27] MEDS ORDERED: PHENERGAN 25 TA25 MG PO (06:37)
== END 2021-05-26 10:23 | disposition home or self-care (01) ==
LOC: COL.ER 09:03
PROVIDERS: Emergency Medicine
DX: R11.2 Nausea with vomiting, unspecified (principal)
CPT/HCPCS: J1790; J7030

== ENCOUNTER 2021-05-27 05:34 | Emergency (ER) | payer MEDICAID ==
[2021-05-27 05:49] VITALS: TEMP 98
[2021-05-27] MEDS ORDERED: PHENERGAN 25 TA25 MG PO (06:37)
[2021-05-27 06:42] VITALS: BP 130/86; PULSE 89
[2021-05-28] MEDS ORDERED: KLOR-CON SPRIN10 MEQ PO (09:35)
== END 2021-05-27 06:43 | disposition home or self-care (01) ==
LOC: COL.ER 05:34
DX: R11.2 Nausea with vomiting, unspecified (principal)
CPT/HCPCS: J2550

== ENCOUNTER 2021-05-28 08:24 | Emergency (ER) | payer MEDICAID ==
[~2021-05-28] VITALS: Ht 162.6 cm; Wt 53.2 kg
[2021-05-28 08:32] VITALS: TEMP 98.3
[2021-05-28 08:51] LABS: BASO # 0.1 K/mm3 (0.0-0.2); BASO % 0.4 % (0.0-2.0); GRAN # 7.8 K/mm3 (1.4-6.5); GRAN % 66.1 % (42.2-75.2); HEMATOCRIT 37.2 % (37.0-47.0); HEMOGLOBIN 12.6 g/dl (12.5-16.0); LYMPH # 3.2 K/mm3 (1.2-3.4); LYMPH % 26.6 % (20.0-51.0); MEAN CELL VOLUME 78 fl (80.0-100.0); MEAN CORPUSCULAR HEMOGLOBIN 26 pg (27.0-31.0); MEAN CORPUSCULAR HGB CONC 34 g/dl (33.0-37.0); MEAN PLATELET VOLUME 9.8 fl (7.4-10.4); MONO # 0.8 K/mm3 (0.1-0.6); MONO % 6.6 % (1.7-9.3); PLATELET COUNT 465 K/mm3 (130-400); RED BLOOD COUNT 4.78 M/mm3 (4.10-5.30); REDCELL DISTRIBUTION WIDTH-CV 14.6 % (11.5-14.5)
[2021-05-28 09:07] LABS: ALBUMIN 5.2 gm/dL (3.5-5.0); BILIRUBIN,TOTAL 0.7 mg/dL (0.2-1.2); C-REACTIVE PROTEIN 0.06 mg/dL (0.00-0.50); CREATININE, serum 0.82 mg/dL (0.57-1.11); POTASSIUM 3.3 mmol/L (3.5-4.5); TOTAL PROTEIN 8.8 gm/dL (6.2-8.1)
[2021-05-28] MEDS ORDERED: KLOR-CON SPRIN10 MEQ PO (09:35)
[2021-05-28 10:15] VITALS: BP 110/64; PULSE 86
== END 2021-05-28 10:15 | disposition home or self-care (01) ==
LOC: COL.ER 08:24
PROVIDERS: Family Medicine
DX: R11.2 Nausea with vomiting, unspecified (principal); K21.9 Gastro-esophageal reflux disease without esophagitis; Z79.899 Other long term (current) drug therapy
CPT/HCPCS: J1200; J1790; J7120

== ENCOUNTER 2021-05-29 12:01 | Outpatient (CLI) | payer MEDICAID ==
[~2021-05-29] VITALS: Ht 162.6 cm; Wt 50.3 kg
[~2021-05-29 12:01] MED LIST changes: +KLOR-CON SPRIN10 MEQ PO
[2021-05-29 12:44] VITALS: BP 119/76; PULSE 77; TEMP 98.1
[2021-05-29 12:45] LABS: HEMOGLOBIN 11.7 g/dl (12.5-16.0); MEAN CELL VOLUME 78 fl (80.0-100.0); MEAN CORPUSCULAR HEMOGLOBIN 26 pg (27.0-31.0); MEAN CORPUSCULAR HGB CONC 34 g/dl (33.0-37.0); MEAN PLATELET VOLUME 9.5 fl (7.4-10.4); RED BLOOD COUNT 4.49 M/mm3 (4.10-5.30); REDCELL DISTRIBUTION WIDTH-CV 14.5 % (11.5-14.5)
[2021-05-29 12:48] LABS: HEMATOCRIT 34.9 % (37.0-47.0); PLATELET COUNT 356 K/mm3 (130-400)
[2021-05-29 13:06] LABS: ALBUMIN 4.8 gm/dL (3.5-5.0); BILIRUBIN,TOTAL 0.6 mg/dL (0.2-1.2); CALCIUM 9.3 mg/dL (8.4-10.2); CREATININE, serum 0.72 mg/dL (0.57-1.11); POTASSIUM 3.2 mmol/L (3.5-4.5); TOTAL PROTEIN 7.8 gm/dL (6.2-8.1)
[2021-05-29 14:50] VITALS: BP 134/86; PULSE 93; TEMP 98.3
== END 2021-05-29 17:06 | disposition home or self-care (01) ==
LOC: EUO 12:01
PROVIDERS: Family Medicine
DX: R11.2 Nausea with vomiting, unspecified (principal)
CPT/HCPCS: J1200; J2405; J7120

== ENCOUNTER 2021-05-30 07:17 | Emergency (ER) | payer MEDICAID ==
[~2021-05-30] VITALS: Ht 162.6 cm; Wt 49.5 kg
[2021-05-30 07:28] VITALS: TEMP 97.6
[2021-05-30 09:50] VITALS: BP 148/102; PULSE 99
--- NOTE | 2021-05-30 09:50 | NUR ---
WILLIAM responded to consult. The patient has come to the ED twelve times since 03/17. This is the patient's 4th visit to the ED this month. She also has a history of bringing her [id number] child, Domitila, to the ED with her. WILLIAM met with the patient and introduced onself. The patient reports that she did not ask to speak to a older adult social work specialist or needs one. WILLIAM informed her of the doctor and RN's concerns. The patient reports that Domitila is with her (father of child). She reports that her PCP, Dr. Chamorro, at [facility] has figured out that she is getting the nausea and abdominal pain around her periods, so they plan on stopping her period. WILLIAM inquired about mental health. The patient reports that she has been evaluated at [facility], but that they are booked for awhile until she can be seen again. WILLIAM offered to contact [facility] to follow up or set up an appointment. The patient declined and states that she does not need older adult social work specialist's services today. WILLIAM updated the patient's RN. The patient did test positive for cannabinoids today. WILLIAM made a CPS report. Intake ID#[id number]. WILLIAM made an APS report. Intake ID#[id number].
== END 2021-05-30 09:50 | disposition home or self-care (01) ==
LOC: COL.ER 07:17
DX: R11.2 Nausea with vomiting, unspecified (principal); K21.9 Gastro-esophageal reflux disease without esophagitis; Z79.899 Other long term (current) drug therapy
CPT/HCPCS: J1630; J1790

== ENCOUNTER 2021-05-31 10:55 | Emergency (ER) | payer MEDICAID ==
[~2021-05-31] VITALS: Ht 162.6 cm; Wt 52.3 kg
[2021-05-31 13:30] VITALS: BP 128/64; PULSE 74; TEMP 97.8
== END 2021-05-31 13:44 | disposition home or self-care (01) ==
LOC: COL.ER 10:55
DX: G24.02 Drug induced acute dystonia (principal)
CPT/HCPCS: J1200

== ENCOUNTER 2021-07-27 03:51 | Emergency (ER) | payer MEDICAID ==
[2021-07-27 03:57] VITALS: TEMP 98.7
[2021-07-27 04:09] LABS: BASO # 0.1 K/mm3 (0.0-0.2); BASO % 0.3 % (0.0-2.0); GRAN % 83.2 % (42.2-75.2); HEMOGLOBIN 12.6 g/dl (12.5-16.0); LYMPH # 1.9 K/mm3 (1.2-3.4); LYMPH % 11.4 % (20.0-51.0); MEAN CELL VOLUME 77 fl (80.0-100.0); MEAN CORPUSCULAR HEMOGLOBIN 25 pg (27-31); MEAN CORPUSCULAR HGB CONC 33 g/dl (33.0-37.0); MONO # 0.8 K/mm3 (0.1-0.6); MONO % 4.7 % (1.7-9.3); PLATELET COUNT 466 K/mm3 (130-400); RED BLOOD COUNT 4.97 M/mm3 (4.10-5.30); REDCELL DISTRIBUTION WIDTH-CV 15.4 % (11.5-14.5)
[2021-07-27 04:24] LABS: ALBUMIN 5.5 gm/dL (3.5-5.0); BILIRUBIN,TOTAL 0.7 mg/dL (0.2-1.2); CALCIUM 10.7 mg/dL (8.4-10.2); CREATININE, serum 1.01 mg/dL (0.57-1.11); POTASSIUM 3.3 mmol/L (3.5-4.5); TOTAL PROTEIN 9.1 gm/dL (6.2-8.1)
[2021-07-27 05:11] VITALS: BP 114/78; PULSE 70
[2021-07-28] MEDS ORDERED: ZOFRAN ODT4 MG PO (13:59)
== END 2021-07-27 05:10 | disposition home or self-care (01) ==
LOC: COL.ER 03:51
PROVIDERS: Personal Emergency Response Attendant
DX: R11.10 Vomiting, unspecified (principal); K21.9 Gastro-esophageal reflux disease without esophagitis; Z79.899 Other long term (current) drug therapy
CPT/HCPCS: J1630; J2405; J7030

== ENCOUNTER 2021-07-28 10:58 | Emergency (ER) | payer MEDICAID ==
[~2021-07-28] VITALS: Ht 162.6 cm; Wt 48.6 kg
[2021-07-28 11:21] VITALS: BP 121/86; TEMP 98.2
[2021-07-28] MEDS ORDERED: ZOFRAN ODT4 MG PO (13:59)
[2021-07-28 15:00] VITALS: PULSE 100
== END 2021-07-28 15:00 | disposition home or self-care (01) ==
LOC: COL.ER 10:58
DX: G24.09 Other drug induced dystonia (principal)
CPT/HCPCS: J1200; J2405; J2550; J7030

== ENCOUNTER 2021-07-30 05:47 | Emergency (ER) | payer MEDICAID ==
[~2021-07-30] VITALS: Ht 162.6 cm; Wt 48.6 kg
[2021-07-30 05:57] VITALS: PULSE 110; TEMP 98
[2021-07-30 06:25] LABS: BASO # 0.1 K/mm3 (0.0-0.2); BASO % 0.5 % (0.0-2.0); EOS # 0.1 K/mm3 (0.0-0.7); EOS % 0.8 % (0.0-4.0); GRAN # 7.1 K/mm3 (1.4-6.5); GRAN % 66.5 % (42.2-75.2); HEMATOCRIT 37.2 % (37.0-47.0); HEMOGLOBIN 12.5 g/dl (12.5-16.0); LYMPH # 2.6 K/mm3 (1.2-3.4); LYMPH % 24.6 % (20.0-51.0); MEAN CELL VOLUME 76 fl (80.0-100.0); MEAN CORPUSCULAR HEMOGLOBIN 26 pg (27-31); MEAN CORPUSCULAR HGB CONC 34 g/dl (33.0-37.0); MEAN PLATELET VOLUME 9.9 fl (7.4-10.4); MONO # 0.8 K/mm3 (0.1-0.6); MONO % 7.2 % (1.7-9.3); PLATELET COUNT 434 K/mm3 (130-400); RED BLOOD COUNT 4.87 M/mm3 (4.10-5.30); REDCELL DISTRIBUTION WIDTH-CV 15.2 % (11.5-14.5)
== END 2021-07-30 06:38 | disposition left against medical advice (07) ==
LOC: COL.ER 05:47
PROVIDERS: Student in an Organized Health Care Education/Training Program
DX: N92.4 Excessive bleeding in the premenopausal period (principal)

== ENCOUNTER 2021-08-01 08:51 | Outpatient (CLI) | payer MEDICAID ==
[2021-08-01] VITALS (10 sets, daily range): BP systolic 124–148; BP diastolic 65–111; PULSE 67–101; TEMP 98.6
[~2021-08-01] VITALS: Ht 162.6 cm; Wt 51.0 kg
--- NOTE | 2021-08-01 09:54 | NUR ---
Pt sleeping. Respirations even and unlabored. Call light in reach.
--- NOTE | 2021-08-01 10:34 | NUR ---
Report from Theron Toney.
--- NOTE | 2021-08-01 14:39 | NUR ---
Report to Theron Toney.
== END 2021-08-01 15:33 ==
LOC: EUO 08:51
DX: Z79.899 Other long term (current) drug therapy (principal)
CPT/HCPCS: J2405; J3480; J7120

== ENCOUNTER 2021-09-25 20:14 | Emergency (ER) | payer MEDICAID ==
[~2021-09-25] VITALS: Ht 162.6 cm; Wt 49.1 kg
[2021-09-25 22:32] LABS: BASO % 0.3 % (0.0-2.0); EOS % 0.1 % (0.0-4.0); GRAN # 7.7 K/mm3 (1.4-6.5); HEMATOCRIT 33.5 % (37.0-47.0); HEMOGLOBIN 11.3 g/dl (12.5-16.0); LYMPH # 1.1 K/mm3 (1.2-3.4); LYMPH % 11.6 % (20.0-51.0); MEAN CELL VOLUME 79 fl (80.0-100.0); MEAN CORPUSCULAR HEMOGLOBIN 27 pg (27-31); MEAN CORPUSCULAR HGB CONC 34 g/dl (33.0-37.0); MEAN PLATELET VOLUME 9.4 fl (7.4-10.4); MONO # 0.4 K/mm3 (0.1-0.6); MONO % 4.7 % (1.7-9.3); PLATELET COUNT 373 K/mm3 (130-400); RED BLOOD COUNT 4.27 M/mm3 (4.10-5.30); REDCELL DISTRIBUTION WIDTH-CV 15.4 % (11.5-14.5)
[2021-09-25 23:03] LABS: ALBUMIN 4.4 gm/dL (3.5-5.0); BILIRUBIN,TOTAL 0.3 mg/dL (0.2-1.2); CALCIUM 9.3 mg/dL (8.4-10.2); CREATININE, serum 0.7 mg/dL (0.57-1.11); POTASSIUM 3.4 mmol/L (3.5-4.5); TOTAL PROTEIN 7.5 gm/dL (6.2-8.1)
[2021-09-26 00:50] VITALS: BP 131/69; PULSE 88; TEMP 98.6
[2021-09-27] MEDS ORDERED: ZOFRAN ODT4 MG PO (14:11)
== END 2021-09-26 00:50 | disposition home or self-care (01) ==
LOC: COL.ER 20:14
PROVIDERS: Personal Emergency Response Attendant
DX: R11.2 Nausea with vomiting, unspecified (principal); Z88.6 Allergy status to analgesic agent
CPT/HCPCS: J1790; J3010; J7030

== ENCOUNTER 2021-09-27 13:22 | Emergency (ER) | payer MEDICAID ==
[~2021-09-27] VITALS: Ht 162.6 cm; Wt 49.1 kg
[2021-09-27] MEDS ORDERED: ZOFRAN ODT4 MG PO (14:11)
[2021-09-27 15:24] VITALS: BP 160/88; PULSE 81; TEMP 98.3
== END 2021-09-27 15:24 | disposition home or self-care (01) ==
LOC: COL.ER 13:22
DX: R10.9 Unspecified abdominal pain (principal); R11.10 Vomiting, unspecified
CPT/HCPCS: J2405; J7120

== ENCOUNTER 2021-10-27 10:51 | Emergency (ER) | payer MEDICAID ==
[~2021-10-27] VITALS: Ht 162.6 cm; Wt 49.1 kg
[2021-10-27 10:58] VITALS: TEMP 98.3
[2021-10-27 11:42] LABS: BASO % 0.4 % (0.0-2.0); EOS # 0.2 K/mm3 (0.0-0.7); EOS % 2.3 % (0.0-4.0); GRAN # 4.3 K/mm3 (1.4-6.5); GRAN % 54.2 % (42.2-75.2); HEMATOCRIT 36.3 % (37.0-47.0); HEMOGLOBIN 11.9 g/dl (12.5-16.0); LYMPH # 2.9 K/mm3 (1.2-3.4); LYMPH % 37.2 % (20.0-51.0); MEAN CELL VOLUME 81 fl (80.0-100.0); MEAN CORPUSCULAR HEMOGLOBIN 27 pg (27-31); MEAN CORPUSCULAR HGB CONC 33 g/dl (33.0-37.0); MEAN PLATELET VOLUME 9.7 fl (7.4-10.4); MONO # 0.4 K/mm3 (0.1-0.6); MONO % 5.6 % (1.7-9.3); PLATELET COUNT 370 K/mm3 (130-400); RED BLOOD COUNT 4.47 M/mm3 (4.10-5.30); REDCELL DISTRIBUTION WIDTH-CV 15.4 % (11.5-14.5)
[2021-10-27 12:00] LABS: ALANINE AMINOTRANSFERASE < 6 U/L (0-55); ALBUMIN 4.6 gm/dL (3.5-5.0); ALKALINE PHOSPHATASE 80 U/L (40-150); ANION GAP 12 mmol/L (7-16); AST,SGOT 11 U/L (5-34); BILIRUBIN,TOTAL 0.4 mg/dL (0.2-1.2); BLOOD UREA NITROGEN 6 mg/dL (7-19); CALCIUM 9.2 mg/dL (8.4-10.2); CARBON DIOXIDE 19 mmol/L (22-29); CHLORIDE 109 mmol/L (98-107); CREATININE, serum 0.73 mg/dL (0.57-1.11); GLUCOSE 103 mg/dL (70-99); POTASSIUM 3.8 mmol/L (3.5-4.5); SODIUM 140 mmol/L (136-145); TOTAL PROTEIN 7.4 gm/dL (6.2-8.1)
[2021-10-27] MEDS ORDERED: PHENERGAN25 MG RC (12:27)
[2021-10-27 12:53] VITALS: BP 110/72; PULSE 101
== END 2021-10-27 12:56 | disposition home or self-care (01) ==
LOC: COL.ER 10:51
PROVIDERS: Physician Assistant
DX: R11.15 Cyclical vomiting syndrome unrelated to migraine (principal); R10.13 Epigastric pain; Z28.310 Unvaccinated for COVID-19
CPT/HCPCS: J1200; J1790; J7120

== ENCOUNTER 2021-12-04 13:10 | Emergency (ER) | payer MEDICAID ==
[~2021-12-04] VITALS: Ht 162.6 cm; Wt 48.6 kg
[~2021-12-04 13:10] MED LIST changes: +PHENERGAN25 MG RC
[2021-12-04 13:16] VITALS: TEMP 96.7
[2021-12-04 14:28] VITALS: BP 112/74; PULSE 82
[2021-12-04] MEDS ORDERED: ZOFRAN ODT4 MG PO (14:33)
== END 2021-12-04 14:42 | disposition home or self-care (01) ==
LOC: COL.ER 13:10
DX: R11.2 Nausea with vomiting, unspecified (principal); R11.15 Cyclical vomiting syndrome unrelated to migraine; Z28.310 Unvaccinated for COVID-19
CPT/HCPCS: J0780; J7030

== ENCOUNTER 2021-12-06 10:52 | Emergency (ER) | payer MEDICAID ==
[~2021-12-06] VITALS: Ht 162.6 cm; Wt 48.6 kg
[2021-12-06 11:00] VITALS: TEMP 97.9
[2021-12-06 11:28] LABS: BASO # 0.1 K/mm3 (0.0-0.2); BASO % 0.6 % (0.0-2.0); EOS # 0.3 K/mm3 (0.0-0.7); EOS % 2.8 % (0.0-4.0); GRAN # 5.1 K/mm3 (1.4-6.5); HEMATOCRIT 37.2 % (37.0-47.0); HEMOGLOBIN 12.5 g/dl (12.5-16.0); LYMPH # 2.9 K/mm3 (1.2-3.4); LYMPH % 33.2 % (20.0-51.0); MEAN CELL VOLUME 80 fl (80.0-100.0); MEAN CORPUSCULAR HEMOGLOBIN 27 pg (27-31); MEAN CORPUSCULAR HGB CONC 34 g/dl (33.0-37.0); MEAN PLATELET VOLUME 9.8 fl (7.4-10.4); MONO # 0.5 K/mm3 (0.1-0.6); MONO % 5.2 % (1.7-9.3); PLATELET COUNT 409 K/mm3 (130-400); RED BLOOD COUNT 4.65 M/mm3 (4.10-5.30); REDCELL DISTRIBUTION WIDTH-CV 15.1 % (11.5-14.5)
[2021-12-06 11:50] LABS: ALBUMIN 4.6 gm/dL (3.5-5.0); BILIRUBIN,TOTAL 0.3 mg/dL (0.2-1.2); CALCIUM 9.6 mg/dL (8.4-10.2); CREATININE, serum 0.77 mg/dL (0.57-1.11); POTASSIUM 3.5 mmol/L (3.5-4.5)
[2021-12-06 12:12] LABS: COLLECTION METHOD CLEAN CATCH
[2021-12-06 12:23] LABS: MUCOUS Present (NOT PRESENT); PH 7 (5-8); URINE APPEARANCE Hazy (CLEAR/HAZY); URINE BACTERIA None Seen /hpf (NONE SEEN); URINE BILIRUBIN Negative (NEGATIVE); URINE BLOOD Negative (NEGATIVE); URINE COLOR Yellow (YELLOW); URINE GLUCOSE Negative (NEGATIVE); URINE KETONE Trace (NEGATIVE); URINE LEUKOCYTE ESTERASE Negative (NEGATIVE); URINE NITRATE Negative (NEGATIVE); URINE PROTEIN(semi-quant) Negative (NEGATIVE); URINE RBC 0-2 /hpf (0-2); URINE UROBILINOGEN Negative (NEGATIVE)
[2021-12-06 12:34] VITALS: BP 133/85; PULSE 84
== END 2021-12-06 12:34 | disposition home or self-care (01) ==
LOC: COL.ER 10:52
PROVIDERS: Emergency Medicine
DX: R11.2 Nausea with vomiting, unspecified (principal); Z32.02 Encounter for pregnancy test, result negative; Z28.310 Unvaccinated for COVID-19
CPT/HCPCS: J1790; J7030

== ENCOUNTER 2022-01-01 18:09 | Emergency (ER) | payer MEDICAID ==
[~2022-01-01] VITALS: Ht 162.6 cm; Wt 47.7 kg
[2022-01-01 18:31] VITALS: TEMP 97.1
[2022-01-01 19:08] VITALS: BP 137/77; PULSE 86
== END 2022-01-01 19:08 | disposition home or self-care (01) ==
LOC: COL.ER 18:09
DX: R11.15 Cyclical vomiting syndrome unrelated to migraine (principal)
CPT/HCPCS: J1790

== ENCOUNTER 2022-02-22 13:43 | Emergency (ER) | payer MEDICAID ==
[~2022-02-22] VITALS: Ht 162.6 cm; Wt 47.7 kg
[2022-02-22 13:45] VITALS: TEMP 97.8
[2022-02-22 14:43] LABS: BASO # 0.1 K/mm3 (0.0-0.2); BASO % 0.3 % (0.0-2.0); EOS % 0.1 % (0.0-4.0); GRAN # 13.9 K/mm3 (1.4-6.5); GRAN % 88.5 % (42.2-75.2); HEMATOCRIT 38.3 % (37.0-47.0); HEMOGLOBIN 13.2 g/dl (12.5-16.0); LYMPH # 1.3 K/mm3 (1.2-3.4); LYMPH % 8.3 % (20.0-51.0); MEAN CELL VOLUME 81 fl (80.0-100.0); MEAN CORPUSCULAR HEMOGLOBIN 28 pg (27-31); MEAN CORPUSCULAR HGB CONC 35 g/dl (33.0-37.0); MEAN PLATELET VOLUME 10.1 fl (7.4-10.4); MONO # 0.4 K/mm3 (0.1-0.6); MONO % 2.4 % (1.7-9.3); PLATELET COUNT 390 K/mm3 (130-400); RED BLOOD COUNT 4.71 M/mm3 (4.10-5.30); REDCELL DISTRIBUTION WIDTH-CV 13.8 % (11.5-14.5)
[2022-02-22 15:02] LABS: ALBUMIN 4.9 gm/dL (3.5-5.0); BILIRUBIN,TOTAL 0.3 mg/dL (0.2-1.2); C-REACTIVE PROTEIN 0.06 mg/dL (0.00-0.50); CALCIUM 9.9 mg/dL (8.4-10.2); CREATININE, serum 0.79 mg/dL (0.57-1.11); POTASSIUM 3.8 mmol/L (3.5-4.5); TOTAL PROTEIN 8.1 gm/dL (6.2-8.1)
[2022-02-22 16:14] VITALS: BP 100/61; PULSE 97
== END 2022-02-22 16:14 | disposition home or self-care (01) ==
LOC: COL.ER 13:43
PROVIDERS: Nurse Practitioner
DX: R11.2 Nausea with vomiting, unspecified (principal); R19.7 Diarrhea, unspecified; Z28.310 Unvaccinated for COVID-19
CPT/HCPCS: J1790; J7030

== ENCOUNTER 2022-02-24 19:46 | Emergency (ER) | payer MEDICAID ==
[~2022-02-24] VITALS: Ht 162.6 cm; Wt 47.7 kg
[2022-02-24 19:54] VITALS: TEMP 98
[2022-02-24 20:55] LABS: COLLECTION METHOD CLEAN CATCH
[2022-02-24 21:01] LABS: PH 6.5 (5.0-8.5); URINE APPEARANCE Clear (CLEAR/HAZY); URINE BLOOD TRACE-INTACT (NEGATIVE); URINE COLOR Yellow (YELLOW); URINE GLUCOSE Negative (NEGATIVE); URINE KETONE 2+ (NEGATIVE); URINE NITRATE Negative (NEGATIVE); URINE PROTEIN(semi-quant) TRACE (NEGATIVE)
[2022-02-24 21:02] LABS: MUCOUS Present (NOT PRESENT); URINE BACTERIA Rare /hpf (NONE SEEN)
[2022-02-24 21:24] LABS: TRICYCLIC ANTIDEPRESS URINE NEGATIVE
[2022-02-24 23:00] VITALS: BP 121/80; PULSE 98
== END 2022-02-24 23:00 | disposition home or self-care (01) ==
LOC: COL.ER 19:46
PROVIDERS: Nurse Practitioner
DX: R11.10 Vomiting, unspecified (principal); R10.84 Generalized abdominal pain; F17.290 Nicotine dependence, other tobacco product, uncomplicated; Z28.310 Unvaccinated for COVID-19; Z32.02 Encounter for pregnancy test, result negative
CPT/HCPCS: J1790; J7030

== ENCOUNTER 2022-04-21 13:05 | Emergency (ER) | payer MEDICAID ==
[~2022-04-21] VITALS: Ht 162.6 cm; Wt 49.1 kg
[2022-04-21 13:12] VITALS: TEMP 97.5
[2022-04-21 15:52] VITALS: BP 100/92; PULSE 88
[2022-04-23] MEDS ORDERED: REGLAN 10MG10 MG/TAB PO (08:29)
== END 2022-04-21 15:53 | disposition home or self-care (01) ==
LOC: COL.ER 13:05
DX: R11.2 Nausea with vomiting, unspecified (principal); Z28.310 Unvaccinated for COVID-19; Z88.5 Allergy status to narcotic agent
CPT/HCPCS: J1790; J1885

== ENCOUNTER 2022-08-01 14:26 | Emergency (ER) | payer MEDICAID ==
[~2022-08-01] VITALS: Ht 162.6 cm; Wt 49.1 kg
[~2022-08-01 14:26] MED LIST changes: +REGLAN 10MG10 MG/TAB PO
[2022-08-01 14:34] VITALS: BP 112/73; TEMP 97.9
[2022-08-01 15:19] VITALS: PULSE 84
== END 2022-08-01 15:20 | disposition home or self-care (01) ==
LOC: COL.ER 14:26
DX: R11.15 Cyclical vomiting syndrome unrelated to migraine (principal); R11.0 Nausea; Z28.310 Unvaccinated for COVID-19
CPT/HCPCS: J1790

== ENCOUNTER 2022-08-03 06:28 | Emergency (ER) | payer MEDICAID ==
[~2022-08-03] VITALS: Ht 162.6 cm; Wt 49.1 kg
[2022-08-03 06:31] VITALS: TEMP 99
[2022-08-03 08:15] VITALS: BP 141/75; PULSE 99
== END 2022-08-03 08:15 | disposition home or self-care (01) ==
LOC: COL.ER 06:28
DX: R11.2 Nausea with vomiting, unspecified (principal); R10.13 Epigastric pain
CPT/HCPCS: J1200; J1790

== ENCOUNTER 2022-08-05 10:36 | Emergency (ER) | payer MEDICAID ==
[~2022-08-05] VITALS: Ht 162.6 cm; Wt 49.1 kg
[2022-08-05 10:41] VITALS: BP 143/82; TEMP 98.3
[2022-08-05] MEDS ORDERED: OPTIVAR 6 ML 6 M6 ML OP (11:41)
[2022-08-05 12:57] VITALS: PULSE 88
== END 2022-08-05 12:58 | disposition home or self-care (01) ==
LOC: COL.ER 10:36
DX: K59.00 Constipation, unspecified (principal); Z28.310 Unvaccinated for COVID-19

== ENCOUNTER 2022-09-06 07:54 | Emergency (ER) | payer MEDICAID ==
[~2022-09-06] VITALS: Ht 162.6 cm; Wt 49.1 kg
[~2022-09-06 07:54] MED LIST changes: +OPTIVAR 6 ML 6 M6 ML OP
[2022-09-06 08:00] VITALS: TEMP 97.7
[2022-09-06 08:21] LABS: BASO # 0.1 K/mm3 (0.0-0.2); BASO % 0.4 % (0.0-2.0); EOS # 0.3 K/mm3 (0.0-0.7); EOS % 1.4 % (0.0-4.0); GRAN # 18.3 K/mm3 (1.4-6.5); HEMOGLOBIN 13.9 g/dl (12.5-16.0); LYMPH # 2.1 K/mm3 (1.2-3.4); LYMPH % 9.6 % (20.0-51.0); MEAN CELL VOLUME 84 fl (80.0-100.0); MEAN CORPUSCULAR HEMOGLOBIN 29 pg (27-31); MEAN CORPUSCULAR HGB CONC 34 g/dl (33.0-37.0); MEAN PLATELET VOLUME 9.3 fl (7.4-10.4); MONO # 0.9 K/mm3 (0.1-0.6); MONO % 4.1 % (1.7-9.3); PLATELET COUNT 423 K/mm3 (130-400); RED BLOOD COUNT 4.86 M/mm3 (4.10-5.30); REDCELL DISTRIBUTION WIDTH-CV 12.5 % (11.5-14.5)
[2022-09-06 08:40] LABS: ALBUMIN 5.2 gm/dL (3.5-5.0); BILIRUBIN,TOTAL 0.8 mg/dL (0.2-1.2); CALCIUM 10.1 mg/dL (8.4-10.2); CREATININE, serum 0.8 mg/dL (0.57-1.11); POTASSIUM 3.5 mmol/L (3.5-4.5); TOTAL PROTEIN 8.2 gm/dL (6.2-8.1)
[2022-09-06 10:32] VITALS: BP 127/92; PULSE 82
== END 2022-09-06 10:40 | disposition home or self-care (01) ==
LOC: COL.ER 07:54
PROVIDERS: Emergency Medicine
DX: R10.2 Pelvic and perineal pain (principal); R11.2 Nausea with vomiting, unspecified; D72.829 Elevated white blood cell count, unspecified; E87.20 Acidosis, unspecified; Z87.42 Personal history of other diseases of the female genital tract; Z28.310 Unvaccinated for COVID-19
CPT/HCPCS: J1790; J1885; J2405; Q9967

== ENCOUNTER 2022-09-07 11:46 | Emergency (ER) | payer MEDICAID ==
[~2022-09-07] VITALS: Ht 162.6 cm; Wt 49.1 kg
[2022-09-07 12:28] VITALS: TEMP 98
[2022-09-07 13:06] LABS: BASO # 0.1 K/mm3 (0.0-0.2); BASO % 0.3 % (0.0-2.0); EOS # 0.1 K/mm3 (0.0-0.7); EOS % 0.3 % (0.0-4.0); GRAN # 15.5 K/mm3 (1.4-6.5); GRAN % 89.2 % (42.2-75.2); HEMATOCRIT 39.5 % (37.0-47.0); HEMOGLOBIN 14.2 g/dl (12.5-16.0); LYMPH # 1.1 K/mm3 (1.2-3.4); LYMPH % 6.5 % (20.0-51.0); MEAN CELL VOLUME 81 fl (80.0-100.0); MEAN CORPUSCULAR HEMOGLOBIN 29 pg (27-31); MEAN CORPUSCULAR HGB CONC 36 g/dl (33.0-37.0); MEAN PLATELET VOLUME 9.7 fl (7.4-10.4); MONO # 0.5 K/mm3 (0.1-0.6); MONO % 3.1 % (1.7-9.3); PLATELET COUNT 404 K/mm3 (130-400); RED BLOOD COUNT 4.87 M/mm3 (4.10-5.30)
[2022-09-07 13:22] LABS: ALBUMIN 5.2 gm/dL (3.5-5.0); BILIRUBIN,TOTAL 0.6 mg/dL (0.2-1.2); CALCIUM 10.2 mg/dL (8.4-10.2); CREATININE, serum 0.76 mg/dL (0.57-1.11); POTASSIUM 3.3 mmol/L (3.5-4.5); TOTAL PROTEIN 8.3 gm/dL (6.2-8.1)
[2022-09-07 14:56] VITALS: BP 134/100; PULSE 91
== END 2022-09-07 15:05 | disposition home or self-care (01) ==
LOC: COL.ER 11:46
PROVIDERS: Physician Assistant
DX: F41.9 Anxiety disorder, unspecified (principal); F12.10 Cannabis abuse, uncomplicated; R11.15 Cyclical vomiting syndrome unrelated to migraine; Z28.310 Unvaccinated for COVID-19
CPT/HCPCS: J1200; J1790; J7030

== ENCOUNTER 2022-09-26 10:10 | Emergency (ER) | payer MEDICAID ==
[~2022-09-26] VITALS: Ht 162.6 cm; Wt 49.1 kg
[2022-09-26 11:02] LABS: BASO # 0.1 K/mm3 (0.0-0.2); BASO % 0.6 % (0.0-2.0); EOS # 0.2 K/mm3 (0.0-0.7); EOS % 1.9 % (0.0-4.0); GRAN # 8.4 K/mm3 (1.4-6.5); GRAN % 73.9 % (42.2-75.2); HEMATOCRIT 40.5 % (37.0-47.0); HEMOGLOBIN 13.9 g/dl (12.5-16.0); LYMPH # 2.3 K/mm3 (1.2-3.4); LYMPH % 20.3 % (20.0-51.0); MEAN CELL VOLUME 86 fl (80.0-100.0); MEAN CORPUSCULAR HEMOGLOBIN 29 pg (27-31); MEAN CORPUSCULAR HGB CONC 34 g/dl (33.0-37.0); MEAN PLATELET VOLUME 9.5 fl (7.4-10.4); MONO # 0.3 K/mm3 (0.1-0.6); MONO % 2.9 % (1.7-9.3); PLATELET COUNT 439 K/mm3 (130-400); RED BLOOD COUNT 4.73 M/mm3 (4.10-5.30); REDCELL DISTRIBUTION WIDTH-CV 12.6 % (11.5-14.5)
[2022-09-26 11:08] VITALS: BP 152/102; TEMP 97.6
[2022-09-26 11:29] LABS: ALBUMIN 4.8 gm/dL (3.5-5.0); BILIRUBIN,TOTAL 0.6 mg/dL (0.2-1.2); CALCIUM 9.8 mg/dL (8.4-10.2); CREATININE, serum 0.75 mg/dL (0.57-1.11); POTASSIUM 3.9 mmol/L (3.5-4.5)
[2022-09-26] MEDS ORDERED: PHENERGAN25 MG RC (11:54)
[2022-09-26 12:02] VITALS: PULSE 125
--- NOTE | 2022-09-26 12:50 | NUR ---
SW consulted per patients request.Upon entry to room, patient tearful stating that she hates coming to this hospital because " no one takes me seriously" and " the nurse in the other room laughed at me". Patient provided emotional support. Patient requests thaht this SW stay with her at bedside out of "fear of how im going to be treated". Patient discloses that she was raised in the foster care system. When asked if shes even been diagnosed with a mental health disorder, patient verbalizes " oh yes, when you're in foster care they will diagnose you with everything", but goes on to say she has been to [facility] and has had a colonoscopy, EGD and gastric emptying study done and they can't find anything. She verbalizes that the symptoms appear every month for 2 weeks surrounding her menstural cycle. Patient provided psychoeducation to manage symptoms and agrees to this WILLIAM reaching out to office for corrdination of care. Phone call made to WILLIAM Stahl at [facility] and message left.
== END 2022-09-26 12:02 | disposition home or self-care (01) ==
LOC: COL.ER 10:10
PROVIDERS: Nurse Practitioner
DX: R11.15 Cyclical vomiting syndrome unrelated to migraine (principal); D72.829 Elevated white blood cell count, unspecified; Z28.310 Unvaccinated for COVID-19
CPT/HCPCS: J2405; J2550

== ENCOUNTER 2022-10-24 08:23 | Emergency (ER) | payer MEDICAID ==
[~2022-10-24] VITALS: Ht 162.6 cm; Wt 48.9 kg
--- NOTE | 2022-10-24 11:17 | NUR ---
canvas worker met with patient, per patient request. Worker offered support and engaged patient in conversation about her life. We discussed conflict management and her health care. Patient verbalized that she desires to move to [place] to "make a new start" and worker encouraged applying for medicaid for herself and son when they arrive. Patient spoke of her life in foster care and time spent in "group homes". Patient discharged home and worker encouraged patient to stop by [facility] and get her prescription filled.
[2022-10-24 11:53] VITALS: BP 121/79; PULSE 105; TEMP 98
== END 2022-10-24 09:43 | disposition home or self-care (01) ==
LOC: COL.ER 08:23
DX: J45.909 Unspecified asthma, uncomplicated (principal); F17.290 Nicotine dependence, other tobacco product, uncomplicated

== ENCOUNTER 2023-06-22 11:41 | Emergency (ER) | payer MEDICAID ==
[~2023-06-22] VITALS: Ht 162.6 cm; Wt 49.1 kg
[2023-06-22 14:04] VITALS: BP 123/85; PULSE 83; TEMP 98
[2023-06-22] MEDS ORDERED: ZOFRAN ODT4 MG PO (14:04)
== END 2023-06-22 14:11 | disposition home or self-care (01) ==
LOC: COL.ER 11:41
DX: R11.2 Nausea with vomiting, unspecified (principal)
CPT/HCPCS: J2405; J7030

== ENCOUNTER 2023-07-04 10:15 | Emergency (ER) | payer MEDICAID ==
[~2023-07-04] VITALS: Ht 162.6 cm; Wt 48.6 kg
[2023-07-04 10:52] VITALS: BP 125/83; PULSE 103; TEMP 98.1
[2023-07-04] MEDS ORDERED: NS 1,000 ML IV ONE (12:45)
[2023-07-04] MEDS ORDERED: Ondansetron 4 MG/2 ML VIAL IV ONE (12:45)
== END 2023-07-04 13:34 | disposition left against medical advice (07) ==
LOC: COL.ER 10:15
DX: R10.84 Generalized abdominal pain (principal); R11.10 Vomiting, unspecified; R19.7 Diarrhea, unspecified; R45.1 Restlessness and agitation
CPT/HCPCS: J2405; J7030

== ENCOUNTER 2024-01-12 11:14 | Emergency (ER) | payer MEDICAID ==
[~2024-01-12] VITALS: Ht 162.6 cm; Wt 49.1 kg
[2024-01-12 11:20] VITALS: BP 138/93; PULSE 98; TEMP 97.9
[2024-01-12] MEDS ORDERED: NS 1,000 ML IV ONE (11:45)
[2024-01-12] MEDS ORDERED: Ondansetron 4 MG/2 ML VIAL IV ONE (11:45)
[2024-01-12] MEDS ORDERED: Loperamide 2 MG CAP PO ONE (12:00)
== END 2024-01-12 11:59 | disposition left against medical advice (07) ==
LOC: COL.ER 11:14
DX: G89.29 Other chronic pain (principal); R10.9 Unspecified abdominal pain; R11.2 Nausea with vomiting, unspecified; R19.7 Diarrhea, unspecified; Z88.0 Allergy status to penicillin